=== PATIENT | female | born 1975 | race Caucasian/White ===

== ENCOUNTER 2020-07-04 11:19 | Day surgery (SDC) | payer OTHER ==
[2020-06-29 12:42] VITALS: BMI 31.6
[2020-07-04] MEDS ORDERED: BUPIVACAINE HCL/PF 0.5% (5MG/ML) 10 ML VIAL ONE ×2 (12:49→13:28)
[2020-07-04] MEDS ORDERED: MIDAZOLAM HCL 2 MG/2 ML SINGLE DOSE VIAL ONE (13:16)
[2020-07-04] MEDS ORDERED: PROPOFOL 20 ML ONE ×3 (13:19)
[2020-07-04] MEDS ORDERED: SUCCINYLCHOLINE CHLORIDE 200 MG/10 ML SYRINGE ONE (13:19)
[2020-07-04] MEDS ORDERED: LIDOCAINE HCL 1%, 10 MG/ML (20ML VIAL) ONE (13:28)
[2020-07-04] MEDS ORDERED: oxyCODONE HCL 5 MG TABLET PO PRN ×2 (14:10)
[2020-07-04] MEDS ORDERED: ONDANSETRON 4 MG/2 ML VIAL IVPUSH PRN (14:10)
[2020-07-04] MEDS ORDERED: PROMETHAZINE HCL 25 MG/1 ML VIAL IVPUSH PRN (14:10)
[2020-07-04 14:36] VITALS: PULSE 64
[2020-07-04 15:01] VITALS: TEMP 97.7
[2020-07-04 17:08] VITALS: BP 109/76
== END 2020-07-04 16:40 | disposition home or self-care (01) ==
LOC: FASU 11:19
PROVIDERS: ATTEND Surgery Vascular Surgery
PROC: 0WUF0JZ Supplement Abdominal Wall with Synthetic Substitute, Open Approach (ICD-10-PCS; principal; 2020-07-04 13:37)
DX: K43.2 Incisional hernia without obstruction or gangrene (principal)
CPT/HCPCS: 84703; 94760